=== PATIENT | female | born 1980 | race Caucasian/White ===

== ENCOUNTER 2025-03-16 13:57 | Day surgery (SDC) | payer OTHER, SELFPAY ==
[2025-03-08 15:27] LABS: Hematocrit 36.1 % (37-47); Hemoglobin 10.9 g/dL (12.0-15.0); Mean Corp Hgb Conc 30.2 g/dL (32-36); Mean Corpuscular Volume 72.8 fL (81-99); Mean Platelet Vol. 10.1 fl (6.2-12.0); POSITIVE MORPHOLOGY YES; Platelet Count 266 K/mm3 (150-450); Red Blood Count 4.96 M/mm3 (4.2-5.4); White Blood Count 5.9 K/mm3 (4.4-11.0)
[2025-03-08 15:43] LABS: Anion Gap 13 (5-15); BUN 13 mg/dL (4-19); BUN/Creat Ratio 20.8 RATIO (10-20); Calcium,Total 9.1 mg/dL (7.6-11.0); Carbon Dioxide 20.9 mmol/L (21.0-32.0); Chloride 105 mmol/L (98-108); Glucose 92 mg/dL (70-99); Potassium 3.8 mmol/L (3.3-5.1)
[2025-03-08 20:54] LABS: Scan Indicated on CBC? Y/N YES- FLAGS NOTED
[2025-03-16] VITALS (10 sets, daily range): BP systolic 107–140; BP diastolic 65–95; PULSE 66–75; RESP 14–16; TEMP 36.1–36.9; O2SAT 93–99; BMI 29.9
[2025-03-16] MEDS: Lactated Ringers 1,000 ML 15 ML IV (14:24)
[2025-03-16 14:26] LABS: Internal QC Validated? YES +Cl - CLEAR BKGD; Pregnancy, Urine Negative Negative
--- NOTE | 2025-03-16 14:36 | PCM.PRE.AN2 ---
ASA Classification* ASA Classification ASA Classification: 1 Assessment & Plan Anesthesia* Anesthesia Assessment Anesthesia Assessment: Discussed sedation and/or anesthesia options, risks, benefits, and alternatives with patient/parents/legal guardian/POA. Questions invited. The patient/parents/legal guardian/POA seems to understand and agrees to proceed with anesthesia plan. Reviewed the physical assessment, medical history, allergy history and patient home medications list prior to surgery/procedure/anesthetic and documented any changes. Performed airway and anesthesia risk assessments. Anesthesia Type Anesthesia Type: General and MAC History Source History Obtained from:: Patient and Chart Anesthesia Focused Assessment* Temperature: 98.5 F Pulse Rate: 70 Blood Pressure: 140/95 Respiratory Rate: 14 Pulse Ox: 99 Oxygen Delivery Method: Room Air Airway Assessment Mouth opens: >3 cm Mallampati Score: II Teeth Condition: Intact Neck Range of motion (ROM): Full ROM Labs Anesthesia Preop lab: CBC WBC, (4.4-11.0) 5.9 K/mm3 03/08/25, 12: RBC, (4.2-5.4) 4.96 M/mm3 03/08/25, 12:57 Hgb, (12.0-15.0) 10.9 g/dL L 03/08/25, 12:57 Hct, (37-47) 36.1 % L 03/08/25, 12:57 Plt Count, (150-450) 266 K/mm3 03/08/25, 12:57 CHEMISTRY Potassium, (3.3-5.1) 3.8 mmol/L 03/08/25, 12: Sodium, (133-145) 138 mmol/L 03/08/25, 12:57 BUN, (4-19) 13 mg/dL 03/08/25, 12:57 Creatinine, (0.70-1.20) 0.63 mg/dL L 03/08/25, 12:57 Glucose, (70-99) 92 mg/dL 03/08/25, 12:57 COAG Urine Test Negative Negative Today, 14:13 Pre-Assessment Diagnosis/Proposed Procedure Planned Operative Procedure(s): CYSTO MIDURETHERAL SLING Anesthesia History 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 When Was Last Pacemaker Check QUESTION #4 FULL TEXT: You/Your Family Experience fever (hyperthermia) with Anesthesia Last Oral Intake Last Oral intake: Last Oral Intake NPO since 21:00 03/16/25 14:18 Meds taken in AM with sips of No 03/16/25 14:18 water? Meds patient instructed to take am of surgery PONV PONV - aircraft part assembler: PONV - aircraft part assembler Female Yes 03/08/25 10:12 HX of Motion Sickness Yes 03/08/25 10:12 HX of N/V After Surgery No 03/08/25 10:12 Non-Smoker Yes 03/08/25 10:12 Duration of Surgery greater Yes 03/08/25 10:12 than 60 minutes Number of Risk Factors 4 03/08/25 10:12 PONV Score Severe Risk 03/08/25 10:12 Height & Weight Height & Weight: Anesthesia: Height & Weight Height 5 ft 5 in 03/16/25 14:18 Weight: 81.647 kg 03/16/25 14:18 Body Mass Index (BMI) 29.9 03/16/25 14:18 Respiratory Assessment Respiratory Assessment - aircraft part assembler: Respiratory Tract Infection Hx - aircraft part assembler Hx Respiratory Tract Infection No 03/08/25 10:12 STOP Sleep Apnea STOP Sleep Apnea - aircraft part assembler: STOP Sleep Apnea - aircraft part assembler Hx Hypertension No 03/08/25 10:12 Hx Sleep Apnea No 03/08/25 10:12 CPAP BIPAP Do you snore loudly (louder No 03/08/25 10:12 than talking or can be heard Do you often feel tired/ No 03/08/25 10:12 fatigued/ sleepy during daytime? Has anyone observed you stop No 03/08/25 10:12 breathing during sleep? STOP Results Negative 03/08/25 10:12 QUESTION #5 FULL TEXT : Do you snore loudly (louder than talking or can be heard through closed doors)? 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 Specify any problems Hx of Preganancy in last 3 No 03/08/25 10:12 Months Nurse Filling Out Transfusion DSCHRIBER 03/08/25 10:12 & Questions: Date: 03/08/25 03/08/25 10:12 Time: 10:13 03/08/25 10:12 Patient unable to answer at this time (ie. confused, unrespo /Reproduction History /Reproductive History - aircraft part assembler: /Reproductive Hx- aircraft part assembler Hx Now No 03/08/25 10:12 Gestational Age (in weeks): EDC: Hx Hx Para Hx Section SAB No 03/08/25 10:12 Does the father of the baby or his family experience fever w Father of the baby Malignant Hypertension history comment Active Medications Active Medications: Current Medications Generic Name Dose Route Start Last Admin Trade Name Freq PRN Reason Stop Dose Admin Lactated Ringer's 1,000 mls @ 15 mls/hr 03/16/25 14:15 03/16/25 14:24 IV 15 mls/hr .Q48H RONNY Administration PFSH Medical History Wears contact lenses Low iron Back pain Migraine headache Seizures Non-smoker Gestational diabetes Stress incontinence Home Medications ?Medication ?Instructions ?Recorded ?Last Taken ?Type multivitamin with iron (Daily 1 tab PO QDAY 02/21/25 Unknown History Vitamin with Iron tablet) ferrous sulfate 325 mg (65 mg 325 mg PO DAILY 03/08/25 Unknown History iron) tablet (FeroSul) tranexamic acid 650 mg tablet 1,300 mg PO Q8 PRN HEAVY MENSES 03/08/25 Unknown History Allergy/AdvReac Type Severity Reaction Status Date / Time No Known Allergies Allergy Verified 03/08/25 10:08 Family History Mother Hypertension Father Diabetes Surgical History Hx of wisdom tooth extraction Social History Smoking Status: Never smoker Review of Systems (Anesthesia) ROS Narrative System reviewed and no additional complaints, except as documented.
--- NOTE | 2025-03-16 14:52 | HP.PCM_ITS ---
History and Physical Date of Admission: 03/16/25 Date of Service: 02/21/25 MR#: [id number] Acct: [id number] Name: RIMMA LINTON Rep #: [id number] : 1980 Provider: Dr. Sharon Gonsalez MD Age/Sex: 45/F [place] [facility] [place] Status: Signed Intake Vital Signs 01/24/2514:17 02/22/2508:29 Height 5 ft 5 in 5 ft 5 in Weight: 175 lb 175 lb BMI 29.1 29.1 BP 132/84 H 127/88 H Pulse 88 61 Temp 98 F Intake Visit Reasons: TO DISCUSS UDS RESULTS Chief Complaint: to discuss uds results Pediatrician Active Practice Required: No Accompanied by: Self Is patient in pain?: No Allergies No Known Allergies Allergy (Unverified 02/21/25 08:32) Medications ?Medication ?Instructions ?Recorded ?Confirmed ?Type multivitamin with iron (Daily 1 tab PO QDAY 02/21/25 02/21/25 History Vitamin with Iron tablet) Have you fallen in the past year?: No Nurse's Note: patient has no symptoms PFSH Medical History Urinary tract infection, site not specified Palpitations Hyperglycemia Gestational diabetes Stress incontinence Surgical History No pertinent past surgical history Family History Mother Hypertension Father Diabetes Social History Smoking Status: Never smoker Questionnaire Social Determinants of Health* [facility] Screening Social determinants of health last assessed in clinic: 03/08/25 Will the patient participate in the screening?: Yes Do you worry about having a steady place to live?: No In the past 12 months, have you had to go without electric, gas, oil or water in your home?: No Have you or anyone in your house had to go without enough food to eat?: No Has lack of reliable transportaion kept you from medical appts or from doing things needed for daily living?: No Has anyone in your support network made you feel unsafe for any reason?: No Does the patient want assistance with any of the above?: No HPI HPI Urology Chief Complaint: to discuss uds results Details: RIMMA LINTON, is a 45 F. She is here to review the results of the UDS testing and make plan for treatment. No changes in symptoms since her last visit. ROS Const Constitutional: No chills, fatigue, fever(s), headache(s), night sweats, weakness, weight change, abnormal sleep pattern or change in appetite Eyes Eyes: No change in vision ENT ENT: No headache(s) or dry mouth Resp Respiratory: No cough, chest congestion, shortness of breath or wheezing Cardio Cardiology: Positive for other (No chest pain.); No shortness of breath, irregular heart rhythm or lightheadedness Gastro GI: Positive for other (No nausea.); No abdominal pain, change in bowel habits, constipation, diarrhea or vomiting Musc Musculoskeletal: No abnormal gait Skin Skin: No yellowing of the eye, lesions, itchy eyes, rash or skin ulcer Neuro Neurology: No abnormal gait, confusion, dizziness, weakness, headache(s) or memory loss Psych Psychiatric: No abnormal sleep pattern, No change in appetite, No confusion and No memory loss Endo Endocrine: No fatigue, increased thirst/drinking or weight change Aller/Imm Allergy/Immunologic: No itchy eyes or wheezing Ernst/Lymp Hematologic/Lymphatic: No easy bleeding, easy bruising or enlarged lymph nodes Exam Const General: cooperative, healthy appearing, comfortable and no acute distress [facility] Head: normocephalic and atraumatic Ears: hearing grossly normal bilaterally and external ears normal Nose: external nose normal Eyes General: appearance normal, both eyes and all related structures Neck Neck: normal visual inspection and trachea midline Chest Chest palpation & inspection: normal inspection of the chest Resp Effort & Inspection: normal respiratory effort, able to speak in complete sentences and symmetric chest movement Cardio Rate: regular rate GI Inspection: normal to inspection Palpation: soft and nontender General: No CVA tenderness Other: Complex CMG with voiding pressure study, urethral pressure profile, EMG were completed. Pressure measuring catheters were placed in the patient's urethra and the rectum without an issue. EMG electrodes were placed on the patient's perineum. The bladder was filled with sterile saline in systematic fashion. She was intermittently asked to valsalva and cough. The subjective response and objective measurements were recorded. There were then used to calculate the pressure values mentioned above. The patient voided at the conclusion of the testing in order to provide the flow and bladder pressure value. Skin General: no rashes or lesions noted Neuro General: patient alert, patient awake, patient oriented x3 and CN's II-XI intact bilaterally Extrem General: normal to inspection Psych Appearance: grossly normal and well kempt Mental Status: mental status grossly normal Supplemental Info The urodynamics were reviewed and discussed with the patient. The bladder capacity is normal. There is no urge incontinence. There is stress incontinence with the leak point pressure below 100. There is not a significant increase in the EMG of the pelvic floor during the voiding phase. There is a good detrusor contraction during the voiding phase. There is not an elevation of the post void residual. 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
--- NOTE | 2025-03-16 14:53 | DCINST_ITS ---
Discharge Instructions Diet Discharge Diet: No restrictions Activity Discharge Activity: May Shower May resume sexual activity in: 4-6 weeks Lifting Restrictions: 5 pounds Additional Activity Instructions:: No strenuous activity, no sexual activity, no walking dogs, no exercise, no vacuuming, no swimming/hot tubs/tub bathing Dressing / Incision Call your doctor if your incision/area has: Continuous Slow Oozing, Sudden Increased Bleeding, Increased Pain/ Swelling, Increased Redness and Foul Smelling Discharge Call your doctor if you observe: Fever of 101 or Higher, Inability to urinate and Inability to have a bowel movement Follow Up Care Please Follow Up With: Sharon Gonsalez MD Test Results: Test results from this visit will be discussed in further detail at your follow- up appointment, if applicable. Discharge Plan Admission Attending Provider: Sharon Gonsalez Primary Care Provider: Antwon Broussard Instructions Print Language: Yoruba Discharge Orders/Prescriptions Prescriptions: New oxycodone-acetaminophen 5-325 mg tablet 1 tab PO Q8H PRN (Reason: pain) 3 Days Qty: 10 0RF cephalexin 500 mg capsule 500 mg PO Q12 3 Days Qty: 6 0RF ondansetron 4 mg tablet,disintegrating 4 mg PO Q8H PRN (Reason: nausea and vomiting) Qty: 10 0RF Continued multivitamin with iron [Daily Vitamin with Iron] Tablet 1 tab PO QDAY ferrous sulfate [FeroSul] 325 mg (65 mg iron) tablet 325 mg PO DAILY tranexamic acid 650 mg tablet 1,300 mg PO Q8 PRN (Reason: HEAVY MENSES) Other Ambulatory Orders: ,Urine (Routine) Timeframe: 20250316 Facility: [facility] - Location: Laboratory Ordered By: Dr. Sharon Gonsalez Disposition Disposition (needs filled in before D/C Order can be placed): Home, Self Care
[2025-03-16] MEDS: Cefazolin 1 GM/5 ML Vial 2 GM IV (15:56)
--- NOTE | 2025-03-16 15:57 | PCM.OPRPT ---
Multi Select Codes Urology Urology Charge Forwarding-multi code: [id number] Cystourethroscopy and [id number] Sling Operation Stress Incontinence Operative Report (Standard) Operative Information Date of Procedure: 03/16/25 Pre-Operative Diagnosis: Stress urinary incontinence, intrinsic sphincter deficiency Post-Operative Diagnosis: Same Surgery/Procedure Performed: Mid urethral sling insertion, cystoscopy metal trades instructor: No Type of Anesthesia: General RN Documented Start/Stop Times: Operation Date: 03/16/25 16:10 Case Time Into Pre-Op 03/16/25 14:02 Out of Pre-Op 03/16/25 15:50 Anesthesia Start 03/16/25 15:55 Into Room 03/16/25 15:55 Procedure Start 03/16/25 16:13 Procedure End 03/16/25 16:31 Anesthesia End 03/16/25 16:40 Out of Room 03/16/25 16:40 Into Recovery 03/16/25 16:42 Procedure Start Time: 16:13 Procedure Stop Time: 16:31 Select all DRAINS/GRAFTS/IMPLANTS that apply: Graft Graft details: Altis mid urethral sling Estimated Blood Loss: 20cc Specimen collected: No Description of surgery: The patient was taken to the operating room and placed on the operating room table. Anesthesia monitored the head, neck, airway, IV access and vital signs throughout the case. Once anesthesia was appropriately administered, she was placed into dorsal lithotomy in Trendelenburg position and was prepped and draped in usual sterile fashion. A 16 Kyrgyz Sadler catheter was inserted to straight drain and the bladder was emptied. The mid urethra was isolated and injected submucosally with 1% lidocaine with epinephrine for hydrostatic dissection and hemostatic control. A vertical midline incision was made approximately 2 cm in length. Blunt and sharp dissection was performed on either side of the urethra with care being taken to avoid entrance into the urethra or the vaginal mucosa. Using the trocars provided, the tines of the mid urethral sling were passed through the incision and through the obturator complexes bilaterally with care being taken to avoid entrance into the vaginal mucosa or urethra. The sling was then positioned against the urethra without tension using the tensioning suture. Once positioning was completed, the tensioning suture was cut. The incision was closed using running interlocking 2-0 Vicryl. The patient was then taken out of Trendelenburg and the Sadler catheter was removed. The cystoscope was inserted through the urethra under direct visualization into the urinary bladder. Cystoscopy revealed no evidence of mass, erythema, ulceration, bladder or urethral injury, laceration or foreign body. The cystoscope was then removed and the patient was awakened and taken to the recovery room in good condition. There were no complications during this procedure. Surgical Findings: Altis sling, good positioning Complications Complications: No Admit VTE Documentation VTE Present on Admission: Yes VTE Mechan Device Prophylaxis: SCD's VTE Pharm Prophylaxis ordered?: No Reason prophylaxis not ordered: Treatment Not Indicated
[2025-03-16] MEDS: Lidocaine 1% (5 ml sdv) 5 ML Vial 4 ML IV (16:01)
[2025-03-16] MEDS: fentaNYL 100 MCG/2 ML Ampul IV (16:01)
[2025-03-16] MEDS: Lidocaine 1% /Epi 1:100 (20ml) 20 ML Vial (16:27)
--- NOTE | 2025-03-16 16:44 | PCM.POST.ANE ---
Anesthesia: Postop Eval I Current Vital Signs Temperature: 97 F Pulse Rate: 75 Blood Pressure: 119/71 Respiratory Rate: 16 Pulse Ox: 95 Assessment Airway patent: Yes Spontaneous unlabored respirations: Yes nausea: No Vomiting: No Anesthesia Complication: No Fluid Hydration Crystalloid volume administer (ml): 1,300 Total IV fluid infused: 1,300 Progress Note Anesthesia document: Postop Eval 1 completed: Yes
--- NOTE | 2025-03-16 17:14 | PCM.POSTANE2 ---
Anesthesia Postop Eval I Sum Postop Eval Completion status Anesthesia document: Postop Eval 1 completed: Yes Anesthesia Postop Eval I Summary Anesthesia Postop Eval I Summary: Anesthesia Postop Eval I: Assessment Summary Airway patent Yes 03/16/25 16:44 INTERNET MARKETING CONSULTANT.TNES Spontaneous unlabored Yes 03/16/25 16:44 INTERNET MARKETING CONSULTANT.TNES respirations Mental status nausea No 03/16/25 16:44 INTERNET MARKETING CONSULTANT.TNES Vomiting No 03/16/25 16:44 INTERNET MARKETING CONSULTANT.TNES Anesthesia Postop Eval I: Fluid Summary Crystalloid volume administer 1,300 03/16/25 16:44 INTERNET MARKETING CONSULTANT.TNES (ml) Colloids volume administered ( ml) Blood Product volume administered (ml) Total IV fluid infused 1,300 03/16/25 16:44 INTERNET MARKETING CONSULTANT.TNES Anesthesia Postop Eval I: Summary Notes Anesthesia Complication No 03/16/25 16:44 INTERNET MARKETING CONSULTANT.TNES Anesthesia Complication Comment: Post-operative progress note Anesthesia: Postop Eval II Evaluation Mental status: Awake and Calm Pain Level: 1 nausea: No Vomiting: No Complications Anesthesia Complication: No
--- NOTE | 2025-03-16 17:14 | POSTOPAN2_ITS ---
Anesthesia Postop Eval I Sum Postop Eval Completion status Anesthesia document: Postop Eval 1 completed: Yes Anesthesia Postop Eval I Summary Anesthesia Postop Eval I Summary: Anesthesia Postop Eval I: Assessment Summary Airway patent Yes 03/16/25 16:44 ASSEMBLER DC FIELD RING.TNES Spontaneous unlabored Yes 03/16/25 16:44 ASSEMBLER DC FIELD RING.TNES respirations Mental status nausea No 03/16/25 16:44 ASSEMBLER DC FIELD RING.TNES Vomiting No 03/16/25 16:44 ASSEMBLER DC FIELD RING.TNES Anesthesia Postop Eval I: Fluid Summary Crystalloid volume administer 1,300 03/16/25 16:44 ASSEMBLER DC FIELD RING.TNES (ml) Colloids volume administered ( ml) Blood Product volume administered (ml) Total IV fluid infused 1,300 03/16/25 16:44 ASSEMBLER DC FIELD RING.TNES Anesthesia Postop Eval I: Summary Notes Anesthesia Complication No 03/16/25 16:44 ASSEMBLER DC FIELD RING.TNES Anesthesia Complication Comment: Post-operative progress note Anesthesia: Postop Eval II Evaluation Mental status: Awake and Calm Pain Level: 1 nausea: No Vomiting: No Complications Anesthesia Complication: No
== END 2025-03-16 19:00 | disposition home or self-care (01) ==
LOC: SDC 13:59 → AC 14:00
PROVIDERS: Anesthesiology; PCP Family Medicine; Referring Provider Urology; Visit Provider Urology
PROC: 0TJB8ZZ Inspection of Bladder, Via Natural or Artificial Opening Endoscopic (ICD-10-PCS; CPT 57288; principal; 2025-03-16 16:00)
DX: N39.3 Stress incontinence (female) (male) (principal); N36.42 Intrinsic sphincter deficiency (ISD); E61.1 Iron deficiency
CPT/HCPCS: 57288; 00860; 36415; 80048; 81025; 85027; C1771; J2405